=== PATIENT | male | born 1980 | race Caucasian/White ===

== ENCOUNTER 2017-10-15 08:01 | Inpatient (IN) | payer OTHER ==
[2017-10-15] MEDS ORDERED: Morphine 4 mg/ml ISec IVP STA (08:13)
[2017-10-15] MEDS ORDERED: Sodium Chloride 0.9% 1,000 ML IV STA (08:13)
--- NOTE | 2017-10-15 08:13 | ED PDOC ---
Arrival/HPI - General Chief Complaint: Abdominal Pain Time Seen by Provider: 10/15/17 08:12 Historian: Patient - History of Present Illness Narrative History of Present Illness (Text): 10/15/17 08:14 A 37 year old male, whose past medical history includes hernia repair and anorexia, presents to the emergency department complaining of periumbilical pain for 1 week. Patient reports having experienced similar pain in the past, however pain is taking longer to resolve than before. Patient denies any other complaints at this time. No PMD Time/Duration: 1 week Past Medical History - Provider Review Nursing Documentation Reviewed: Yes - Infectious Disease Hx of Infectious Diseases: None - Psychiatric Hx Substance Use: No - Surgical History Other/Comment: Hernia repair. Family/Social History - Physician Review Nursing Documentation Reviewed: Yes Family/Social History: No Known Family HX Smoking Status: Never Smoked Hx Alcohol Use: No Hx Substance Use: No Allergies/Home Meds Allergies/Adverse Reactions: Allergies No Known Allergies Allergy (Verified 10/15/17 08:12) Home Medications: Home Meds Medication Instructions Recorded Confirmed No Known Home Med 10/15/17 10/15/17 Review of Systems - Physician Review All systems were reviewed & negative as marked: Yes - Review of Systems Constitutional: absent: Fevers, Night Sweats Respiratory: absent: SOB, Cough Cardiovascular: absent: Chest Pain Gastrointestinal: Abdominal Pain (periumbilical). absent: Diarrhea, Nausea, Vomiting Physical Exam Vital Signs Temp Pulse Resp BP Pulse Ox 10/15/17 09:20 74 17 133/79 99 10/15/17 08:44 98.2 F 73 18 144/79 95 Mental Status: Positive for: Alert and Oriented X 3 - Systems Exam Head: Present: Atraumatic, Normocephalic Pupils: Present: PERRL Extroacular Muscles: Present: EOMI Conjunctiva: Present: Normal Mouth: Present: Moist Mucous Membranes Neck: Present: Normal Range of Motion Respiratory/Chest: Present: Clear to Auscultation, Good Air Exchange. No: Respiratory Distress, Accessory Muscle Use Cardiovascular: Present: Regular Rate and Rhythm, Normal S1, S2. No: Murmurs Abdomen: No: Tenderness, Distention, Peritoneal Signs Back: Present: Normal Inspection Upper Extremity: Present: Normal Inspection. No: Cyanosis, Edema Lower Extremity: Present: Normal Inspection. No: Edema Neurological: Present: GCS=15, CN II-XII Intact, Speech Normal Skin: Present: Warm, Dry, Normal Color. No: Rashes Psychiatric: Present: Alert, Oriented x 3, Normal Insight, Normal Concentration Medical Decision Making ED Course and Treatment: 10/15/17 08:17 Impression: 37 year old male with periumbilical pain. No acute findings on physical exam. Plan: -- Abd/Pelvis CT -- Labs -- Venous Blood Gas -- Morphine -- Zofran -- IV Fluids -- Urinalysis -- Reassess and disposition Progress Notes: 10/15/2017 10:56 Abd/Pelvis CT IMPRESSION: Extensive pericolonic infiltration obi the descending colon in association with diverticulosis consistent with acute diverticulitis. No evidence of pneumoperitoneum or abscess. Dictator: Guille Ventura MD - Lab Interpretations Lab Results: 10/15/17 08:20 10/15/17 08:20 Lab Results 10/15/17 08:20: Sodium 142, Chloride 102, Potassium 4.1, Carbon Dioxide 28, Anion Gap 17, BUN 11, Creatinine 1.0, Est GFR ( Amer) > 60, Est GFR (Non- Af Amer) > 60, Random Glucose 101, Calcium 9.3, Total Bilirubin 1.0, AST 23, ALT 25, Alkaline Phosphatase 93, Total Protein 7.9, Albumin 4.2, Globulin 3.7, Albumin/Globulin Ratio 1.1, Lipase 43 10/15/17 08:20: pO2 46, VBG pH 7.38, VBG pCO2 50.0, VBG HCO3 29.6 H, VBG Total CO2 31.1 H, VBG O2 Sat (Calc) 86.2 H, VBG Base Excess 3.4 H, VBG Potassium 4.3, Sodium 136.0, Chloride 102.0, Glucose 103, Lactate 0.8, FiO2 21.0, Venous Blood Potassium 4.3 10/15/17 08:20: Urine Color Yellow, Urine Appearance Clear, Urine pH 6.0, Ur Specific [place] 1.025, Urine Protein Negative, Urine Glucose (UA) Negative, Urine Ketones Trace H, Urine Blood Trace-intact H, Urine Nitrate Negative, Urine Bilirubin Negative, Urine Urobilinogen 0.2, Ur Leukocyte Esterase Negative , Urine RBC 2 - 5, Urine WBC 0 - 2, Ur Epithelial Cells None, Urine Bacteria Mod 10/15/17 08:20: PT 15.2 H, INR 1.31 H 10/15/17 08:20: WBC 11.4 H, RBC 4.76, Hgb 14.7, Hct 41.5 L, MCV 87.2, MCH 30.9, MCHC 35.4, RDW 11.8, Plt Count 295, MPV 11.1 H, Gran % 76.5 H, Lymph % (Auto) 14.5 L, [place] % (Auto) 8.1 H, Eos % (Auto) 0.8 L, Baso % (Auto) 0.1, Gran # 8.73 H, Lymph # (Auto) 1.7, [place] # (Auto) 0.9 H, Eos # (Auto) 0.1, Baso # (Auto) 0.01 I have reviewed the lab results: Yes - RAD Interpretation Radiology Orders: 10/15/17 08:15 ABD PELVIS PO & IV CONTRAST [CT] Stat - Medication Orders Current Medication Orders: Discontinued Medications Sodium Chloride (Sodium Chloride 0.9%) 1,000 mls @ 999 mls/hr IV .Q1H1M STA Stop: 10/15/17 09:13 Last Admin: 10/15/17 08:54 Dose: 999 mls/hr eMAR Start Stop Document 10/15/17 08:54 [facility] (Rec: 10/15/17 08:54 [facility] [id number]) Intravenous Solution Start Date 10/15/17 Start Time 08:54 End Date 10/15/17 End time 09:55 Total Infusion Time 61 Morphine Sulfate (Morphine) 4 mg IVP STAT STA Stop: 10/15/17 08:14 Last Admin: 10/15/17 08:52 Dose: 4 mg MAR Pain Assessment Document 10/15/17 08:52 [facility] (Rec: 10/15/17 08:52 [facility] [id number]) Pain Reassessment Is this a pain reassessment? No Sleep Is patient sleeping during reassessment? No Presence of Pain Presence of Pain Yes Pain Scale Used Pain Scale Used Numeric Location Pain Location Body Site Abdomen Description Intensity of Pain at present 7 IVP Administration Document 10/15/17 08:52 [facility] (Rec: 10/15/17 08:52 [facility] [id number]) Charges for Administration # of IVP Administrations 1 Ondansetron HCl (Zofran Inj) 8 mg IVP STAT STA Stop: 10/15/17 08:14 Last Admin: 10/15/17 08:53 Dose: 8 mg IVP Administration Document 10/15/17 08:53 [facility] (Rec: 10/15/17 08:53 [facility] [id number]) Charges for Administration # of IVP Administrations 1 - Scribe Statement The provider has reviewed the documentation as recorded by the Rehana Luo Provider Scribe Attestation: All medical record entries made by the Dickibberenice were at my direction and personally dictated by me. I have reviewed the chart and agree that the record accurately reflects my personal performance of the history, physical exam, medical decision making, and the department course for this patient. I have also personally directed, reviewed, and agree with the discharge instructions and disposition. Disposition/Present on Arrival - Present on Arrival History of DVT/PE: No History of Uncontrolled Diabetes: No Urinary Catheter: No History of Decub. Ulcer: No History Surgical Site Infection Following: None - Disposition Forms: [facility] ([place])
[2017-10-15] MEDS ORDERED: Iohexol 240 (50 ml) ONE (08:21)
[2017-10-15 08:50] LABS: BASO # 0.01 K/mm3 (0.0-2.0); BASO % 0.1 % (0.0-3.0); EOS # 0.1 (0.0-0.7); EOS % 0.8 % (1.5-5.0); GRAN # 8.73 (1.4-6.5); GRAN % 76.5 % (50.0-68.0); HEMOGLOBIN 14.7 g/dL (14.0-18.0); LYMPH # 1.7 (1.2-3.4); LYMPH % 14.5 % (22.0-35.0); MEAN CELL VOLUME 87.2 fl (80.0-105.0); MEAN CORPUSCULAR HEMOGLOBIN 30.9 pg (25.0-35.0); MEAN CORPUSCULAR HGB CONC 35.4 g/dl (31.0-37.0); MEAN PLATELET VOLUME 11.1 fl (7.0-11.0); MONO # 0.9 (0.1-0.6); MONO % 8.1 % (1.0-6.0); RBC 4.76 10^6/uL (3.5-6.1); RED CELL DISTRIBUTION WIDTH 11.8 % (11.5-14.5); WHITE BLOOD COUNT 11.4 10^3/ul (4.5-11.0)
[2017-10-15 08:53] LABS: VENOUS BLOOD GAS BASE EXCESS 3.4 mmol/L (0.0-2.0); VENOUS BLOOD GAS PO2 46 mm/Hg (30-55); VENOUS BLOOD PH 7.38 (7.32-7.43)
[2017-10-15 08:57] LABS: INR 1.31 (0.93-1.08); PROTHROMBIN TIME 15.2 SECONDS (9.4-12.5)
[2017-10-15 08:59] LABS: ALB/GLOB RATIO 1.1 (1.1-1.8); ALBUMIN 4.2 g/dL (3.0-4.8); ALT/SGPT 25 U/L (7-56); AST/SGOT 23 U/L (17-59); BLOOD UREA NITROGEN 11 mg/dL (7-21); CALCIUM 9.3 mg/dL (8.4-10.5); GFR AFRICAN-AMERICAN > 60; GFR NON-AFRICAN AMERICAN > 60; LIPASE 43 U/L (23-300)
[2017-10-15 09:04] LABS: URINE BILIRUBIN NEGATIVE (NEGATIVE); URINE BLOOD TRACE-INTACT (NEGATIVE); URINE GLUCOSE (UA) NEGATIVE (NEGATIVE); URINE LEUKOCYTE ESTERASE NEGATIVE Leu/uL (NEGATIVE); URINE PROTEIN NEGATIVE mg/dL (<30 mg/dL); URINE UROBILINOGEN 0.2 E.U./dL (<1 E.U./dL)
[2017-10-15 09:12] LABS: URINE APPEARANCE CLEAR (CLEAR); URINE COLOR YELLOW (YELLOW)
[2017-10-15 09:52] LABS: URINE WBC 0 - 2 /hpf (0-6)
[2017-10-15 09:53] LABS: URINE BACTERIA MOD (NEG)
--- NOTE | 2017-10-15 10:58 | CT ---
PROCEDURE: CT Abdomen and Pelvis with contrast HISTORY: Periumbilical Pain, Constipation, ? Obstruction COMPARISON: None. TECHNIQUE: Contrast dose: 150 cc of Omnipaque 350 Radiation dose: Total exam DLP = 617 mGy-cm. This CT exam was performed using one or more of the following dose reduction techniques: Automated exposure control, adjustment of the mA and/or kV according to patient size, and/or use of iterative reconstruction technique. FINDINGS: LOWER THORAX: Unremarkable. LIVER: Unremarkable. No gross lesion or ductal dilatation. GALLBLADDER AND BILE DUCTS: Unremarkable. PANCREAS: Unremarkable. No gross lesion or ductal dilatation. SPLEEN: Unremarkable. ADRENALS: Unremarkable. No mass. KIDNEYS AND URETERS: Unremarkable. No hydronephrosis. No solid mass. VASCULATURE: Unremarkable. No aortic aneurysm. BOWEL: Extensive pericolonic fat infiltration along the descending colon in association with diverticulosis consistent with acute diverticulitis. No evidence of pneumoperitoneum or abscess. APPENDIX: Normal appendix. PERITONEUM: Unremarkable. No free fluid. No free air. LYMPH NODES: Unremarkable. No enlarged lymph nodes. BLADDER: Unremarkable. REPRODUCTIVE: Unremarkable. BONES: No acute fracture. OTHER FINDINGS: None. IMPRESSION: Extensive pericolonic fat infiltration along the descending colon in association with diverticulosis consistent with acute diverticulitis. No evidence of pneumoperitoneum or abscess.
[2017-10-15] MEDS ORDERED: metroNIDAZOLE IV 500 mg/100 ml 500 MG/100 ML BAG IVPB STA (11:37)
[2017-10-15] MEDS ORDERED: levoFLOXacin 750 mg in D5W 750 MG/150 ML BAG IVPB STA (11:37)
[2017-10-15] MEDS ORDERED: Morphine 2 mg/ml ISec IVP PRN (13:07)
--- NOTE | 2017-10-15 13:17 | CP.PCM.HP ---
<Wanda Herring - Last Filed: 10/15/17 14:22> History of Present Illness - History of Present Illness History of Present Illness: CC: Abdominal pain. Patient is a 37 y/o with pmhx of hernia s/p repair presenting with periumbilical pain for almost a week. The pain felt dull, was at times sharp, 10 /10 at times, non radiating to the back. Was taking claritrin and ibuprofen on/ off with no significant improvement. Patient states he had similar pain in the past however it usually resolve by itself. Denies dysurea. Patient states he was eating popcorn when the pain started. Denies any history of egd or colonoscopy. No fever or chills. No recent weight loss. Denies nausea, vomiting, or diarrhea. No bloody bowel movement. Denies any new diet, denies steroid use. PMHx: as stated above PSHx: Hernia repair 6-7 years ago. FMHx: denies Social: denies tobacco, admits to occasional alcohol, states he uses cbd oil as anti-inflammatory. Sexually active with . 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 Home meds: none Allergy: NKDA Present on Admission - Present on Admission Any Indicators Present on Admission: No History of DVT/PE: No History of Uncontrolled Diabetes: No Urinary Catheter: No Decubitus Ulcer Present: No Review of Systems - Constitutional Constitutional: absent: As Per HPI, Anorexia, Chills, Daytime Sleepiness, Excessive Sweating, Fatigue, Fever, Frequent Falls, Headache, Increased Appetite , Lethargy, Malaise, Night Sweats, Snoring, Sleep Apnea, Weight Gain, Weight Loss, Weakness, Other - EENT Eyes: absent: Change in Vision Ears: absent: Disequilibrium, Dizziness Nose/Mouth/Throat: absent: Dry Mouth, Dysphagia - Cardiovascular Cardiovascular: absent: Chest Pain, Claudication, Dyspnea, Dyspnea on Exertion, Edema, Leg Edema, Leg Ulcers - Respiratory Respiratory: absent: Cough, Dyspnea, Wheezing - Gastrointestinal Gastrointestinal: Abdominal Pain. absent: Belching, Bloating, Change in Bowel Habits, Change in Stool Character, Coffee Ground Emesis, Constipation, Cramping , Diarrhea, Dysphagia, Early Satiety, Excessive Flatus, Fecal Incontinence, Heartburn, Hematochezia, Loose Stools, Melena, Nausea - Genitourinary Genitourinary: absent: Dysuria, Nocturia, Urinary Urgency - Musculoskeletal Musculoskeletal: absent: Back Pain, Muscle Weakness - Integumentary Integumentary: absent: Dry Skin - Neurological Neurological: absent: Dizziness, Headaches - Psychiatric Psychiatric: absent: Confusion, Depression - Endocrine Endocrine: absent: Fatigue, Palpitations - Hematologic/Lymphatic Hematologic: absent: Easy Bleeding, Easy Bruising Past Patient History - Infectious Disease Hx of Infectious Diseases: None - Tetanus Immunizations Tetanus Immunization: Unknown - Past Medical History & Family History Past Medical History?: Yes - Past Social History Smoking Status: Never Smoked Alcohol: Occasional Drugs: Cannabis Home Situation {Lives}: With Family - PSYCHIATRIC Hx Substance Use: No - SURGICAL HISTORY Other/Comment: Hernia repair. Meds Allergies/Adverse Reactions: Allergies Allergy/AdvReac Type Severity Reaction Status Date / Time No Known Allergies Allergy Verified 10/15/17 18:27 Physical Exam - Constitutional Appears: No Acute Distress - Head Exam Head Exam: ATRAUMATIC, NORMAL INSPECTION, NORMOCEPHALIC - Eye Exam Eye Exam: EOMI, Normal appearance, PERRL. absent: Scleral icterus - ENT Exam ENT Exam: Mucous Membranes Moist - Neck Exam Neck exam: Positive for: Normal Inspection - Respiratory Exam Respiratory Exam: Clear to Auscultation Bilateral, NORMAL BREATHING PATTERN. absent: Rales, Rhonchi, Wheezes, Respiratory Distress, Stridor - Cardiovascular Exam Cardiovascular Exam: REGULAR RHYTHM, RRR, +S1, +S2. absent: Bradycardia, Tachycardia, Gallop, JVD, Rubs, Systolic Murmur - GI/Abdominal Exam GI & Abdominal Exam: Normal Bowel Sounds, Soft, Tenderness (left lower quadrant. ). absent: Distended, Firm, Guarding, Rebound, Rigid - Extremities Exam Extremities exam: Positive for: normal inspection. Negative for: pedal edema, tenderness - Back Exam Back exam: NORMAL INSPECTION - Neurological Exam Neurological exam: Alert, Oriented x3 - Psychiatric Exam Psychiatric exam: Normal Affect, Normal Mood - Skin Skin Exam: Dry, Intact, Normal Color, Warm Results - Vital Signs Recent Vital Signs: Last Vital Signs Temp 98.2 F 10/15/17 08:44 Pulse 72 10/15/17 11:41 Resp 18 10/15/17 11:41 BP 130/80 10/15/17 11:41 Pulse Ox 97 10/15/17 11:41 - Labs Result Diagrams: 10/15/17 08:20 10/15/17 08:20 Assessment & Plan - Assessment and Plan (Free Text) Assessment: Patient is a 37 y/o with pmhx of hernia s/p repair presenting with periumbilical pain for almost a week. Plan: 2) Diverticulitis of the descending colon - NPO - on cefepime and flagyl - ua negative for uti, trace ketone and blood. - IVF- NS@100 cc/hr - Gi consult - Zofran prn for nausea, - Morphine prn for pain - Tylenol prn for fever. 2) Lymphopenia - r/o HIV - HIV test ordered - Hep panel ordered - Drug screen 3) DVT and GI prophylaxis: VTE device, and protonix. Patient seen, examined and case discussed with Dr Garcia. - Date & Time Date: 10/15/17 Time: 14:20 <Anny Garcia U - Last Filed: 10/16/17 10:30> Results - Vital Signs Recent Vital Signs: Last Vital Signs Temp 98 F 10/16/17 06:00 Pulse 76 10/16/17 06:00 Resp 18 10/16/17 06:00 BP 99/60 L 10/16/17 06:00 Pulse Ox 97 10/16/17 06:00 - Labs Result Diagrams: 10/16/17 06:15 10/16/17 06:15 Labs: Laboratory Results - last 24 hr 10/15/17 10/15/17 10/16/17 13:10 14:15 06:15 WBC 9.8 RBC 4.28 Hgb 13.0 L Hct 37.6 L MCV 87.9 MCH 30.4 MCHC 34.6 RDW 11.9 Plt Count 265 MPV 10.5 Gran % 70.4 H Lymph % (Auto) 20.6 L [place] % (Auto) 7.3 H Eos % (Auto) 1.5 Baso % (Auto) 0.2 Gran # 6.88 H Lymph # (Auto) 2.0 [place] # (Auto) 0.7 H Eos # (Auto) 0.2 Baso # (Auto) 0.02 APTT 31.1 Sodium Potassium Chloride Carbon Dioxide Anion Gap BUN Creatinine Est GFR ( Amer) Est GFR (Non-Af Amer) Random Glucose Calcium Magnesium Total Bilirubin Direct Bilirubin AST ALT Alkaline Phosphatase Total Protein Albumin Globulin Albumin/Globulin Ratio Urine Opiates Screen Urine Methadone Screen Ur Barbiturates Screen Ur Phencyclidine Scrn Ur Amphetamines Screen U Benzodiazepines Scrn U Oth Cocaine Metabols U Cannabinoids Screen Hepatitis A IgM Ab Negative Hep Bs Antigen Negative Hep B Core IgM Ab Negative Hepatitis C Antibody Negative 10/16/17 10/16/17 06:15 06:54 WBC RBC Hgb Hct MCV MCH MCHC RDW Plt Count MPV Gran % Lymph % (Auto) [place] % (Auto) Eos % (Auto) Baso % (Auto) Gran # Lymph # (Auto) [place] # (Auto) Eos # (Auto) Baso # (Auto) APTT Sodium 147 Potassium 5.0 Chloride 104 Carbon Dioxide 30 Anion Gap 17 BUN 12 Creatinine 1.0 Est GFR ( Amer) > 60 Est GFR (Non-Af Amer) > 60 Random Glucose 88 Calcium 9.1 Magnesium 2.0 Total Bilirubin 1.0 Direct Bilirubin 0.4 AST 15 L D ALT 25 Alkaline Phosphatase 64 Total Protein 6.7 Albumin 3.5 Globulin 3.2 Albumin/Globulin Ratio 1.1 Urine Opiates Screen Positive H Urine Methadone Screen Negative Ur Barbiturates Screen Negative Ur Phencyclidine Scrn Negative Ur Amphetamines Screen Negative U Benzodiazepines Scrn Negative U Oth Cocaine Metabols Negative U Cannabinoids Screen Negative Hepatitis A IgM Ab Hep Bs Antigen Hep B Core IgM Ab Hepatitis C Antibody Assessment & Plan - Assessment and Plan (Free Text) Plan: Patient is seen and examined in room 565-2 Patient's diagnostic data imaging studies all reviewed and discussed and explained to the patient Assessment and plan: Left lower quadrant abdominal pain 1 week History of popcorn eating Acute descending colon diverticulitis and diverticulosis with pericolonic fat infiltration History of medical hernia surgery and adenoidectomy Leukocytosis Granulocytosis KetonurIa Bacteriuria Microscopic hematuria History of CBD OIL use. Occasional alcohol use. Admit to the hospital IV fluid hydration Broad spectrum IV antibiotics Gastroenterology evaluation nothing by mouth versus liquid diet DICTATED AND ELECTRONICALLY SIGNED NOT READ ANNY GARCIA MD
[2017-10-15 13:27] LABS: HDL CHOLESTEROL 39 mg/dL (29-60)
[2017-10-15 13:38] LABS: LDL CHOLESTEROL 79 mg/dL (0-129)
[2017-10-15] MEDS: metroNIDAZOLE IV 500 mg/100 ml 500 MG/100 ML BAG IVPB SCH ×2 (13:58→23:25)
[2017-10-15] MEDS: Sodium Chloride 0.9% 1,000 ML IV SCH (14:06)
[2017-10-15] MEDS: Cefepime 1gm in NS 100ml 1 GM/100 ML BAG IVPB SCH ×2 (15:28→22:17)
[2017-10-15 16:36] LABS: HEPATITIS B SURFACE AG Negative (NEGATIVE)
[2017-10-15 16:41] LABS: HEPATITIS A IGM NEGATIVE (NEGATIVE); HEPATITIS B CORE AB NEGATIVE (NEGATIVE)
[2017-10-15 16:53] LABS: HEPATITIS C ANTIBODY NEGATIVE (NEGATIVE)
--- NOTE | 2017-10-15 19:32 | CON ---
DATE: 10/15/2017 GASTROENTEROLOGY CONSULTATION REQUESTING PHYSICIAN: Wojciech Garcia MD. REASON FOR CONSULTATION: I have been asked to see this 37-year-old male who comes to the hospital with worsening abdominal pain. Patient states that the pain started approximately 1 week ago in the left mid abdomen. Over the next several days, the pain became localized to the periumbilical area with worsening severity. He denies any fevers, but does admit to some chills. He denies any nausea, vomiting, dysuria, or pneumaturia. He denies any previous episode of diverticulitis. CT scan of the abdomen and pelvis performed in the hospital shows moderate pericolonic stranding and inflammation without any abscess or fluid collection. PAST MEDICAL HISTORY: Unremarkable. PAST SURGICAL HISTORY: Notable for a hernia repair about 6 years ago. FAMILY HISTORY: Noncontributory. SOCIAL HISTORY: He denies cigarette smoking and consumes alcohol on a social basis. REVIEW OF SYSTEMS: Fourteen-point review of systems is notable for periumbilical abdominal pain, otherwise negative. PHYSICAL EXAMINATION: GENERAL: A well-developed male, lying in bed in no acute distress. VITAL SIGNS: Reveal temperature of 100.3, blood pressure of 115/68, heart rate of 71. HEENT: Reveals sclerae to be white. Conjunctivae pink. NECK: Supple. CHEST: Lungs are clear. HEART: Reveals regular rate and rhythm. ABDOMEN: Soft, mild left and mid abdominal tenderness. No rebound, no guarding. EXTREMITIES: Show no edema. LABORATORY DATA: Reveals white blood cell count 11.4, hemoglobin 14.7. Chemistries reveal normal electrolytes. AST, ALT, alk phos all normal. IMPRESSION: Diverticulitis involving the descending colon. RECOMMENDATIONS: 1. Continue IV cefepime 1 g every 8 hours. 2. Continue metronidazole 500 mg IV every 8 hours. 3. We will start the patient on clear liquid diet. 4. Continue close observation for development of peritoneal signs. Tyree Gibson MD
[2017-10-15 21:52] VITALS: BMI 29.2
[2017-10-15] MEDS ORDERED: Pneumococcal 23-Valent Vaccine IM ONE (21:52)
[2017-10-16] MEDS: Sodium Chloride 0.9% 1,000 ML IV SCH ×3 (02:37→21:36)
[2017-10-16] MEDS: Cefepime 1gm in NS 100ml 1 GM/100 ML BAG IVPB SCH ×3 (05:34→21:34)
[2017-10-16] MEDS: metroNIDAZOLE IV 500 mg/100 ml 500 MG/100 ML BAG IVPB SCH ×3 (06:19→21:33)
[2017-10-16 06:38] LABS: BASO # 0.02 K/mm3 (0.0-2.0); BASO % 0.2 % (0.0-3.0); EOS # 0.2 (0.0-0.7); EOS % 1.5 % (1.5-5.0); GRAN # 6.88 (1.4-6.5); GRAN % 70.4 % (50.0-68.0); LYMPH % 20.6 % (22.0-35.0); MEAN CELL VOLUME 87.9 fl (80.0-105.0); MEAN CORPUSCULAR HEMOGLOBIN 30.4 pg (25.0-35.0); MEAN CORPUSCULAR HGB CONC 34.6 g/dl (31.0-37.0); MEAN PLATELET VOLUME 10.5 fl (7.0-11.0); MONO # 0.7 (0.1-0.6); MONO % 7.3 % (1.0-6.0); RBC 4.28 10^6/uL (3.5-6.1); RED CELL DISTRIBUTION WIDTH 11.9 % (11.5-14.5); WHITE BLOOD COUNT 9.8 10^3/ul (4.5-11.0)
--- NOTE | 2017-10-16 06:51 | CP.PCM.PN ---
Subjective - Date & Time of Evaluation Date of Evaluation: 10/16/17 Time of Evaluation: 06:00 - Subjective Subjective: Patient seen and evaluated bedside. Patient had fever overnight. States abdominal pain has decreased, tolerating liquid diet. Patient denies chest pain , shortness of breath, nausea, vomiting, or any other complaints at this time. Objective - Vital Signs/Intake and Output Vital Signs (last 24 hours): Temp Pulse Resp BP Pulse Ox 99.9 F H 74 18 118/60 98 10/15/17 22:47 10/15/17 22:47 10/15/17 22:47 10/15/17 22:47 10/15/17 22:47 Intake and Output: 10/15/17 10/16/17 18:59 06:59 Intake Total 480 Balance 480 - Medications Medications: Current Medications Acetaminophen (Tylenol 325mg Tab) 650 mg PO Q6 PRN PRN Reason: TEMP>=99.5F Last Admin: 10/15/17 15:28 Dose: 650 mg Acetaminophen (Tylenol 650 Mg Supp) 650 mg RC Q6H PRN PRN Reason: TEMP>=99.5F Metronidazole (Flagyl) 500 mg in 100 mls @ 100 mls/hr IVPB Q8 MARIO PRN Reason: Protocol Last Admin: 10/16/17 06:19 Dose: 100 mls/hr Cefepime HCl (Maxipime 1gm) 1 gm in 100 mls @ 100 mls/hr IVPB Q8 MARIO PRN Reason: Protocol Last Admin: 10/16/17 05:34 Dose: 100 mls/hr Sodium Chloride (Sodium Chloride 0.9%) 1,000 mls @ 100 mls/hr IV .Q10H [facility] Last Admin: 10/16/17 02:37 Dose: Not Given Morphine Sulfate (Morphine) 2 mg IVP Q6H PRN PRN Reason: Pain, moderate (4-7) Ondansetron HCl (Zofran Inj) 4 mg IVP Q4H PRN PRN Reason: Nausea/Vomiting Pantoprazole Sodium (Protonix Inj) 40 mg IVP DAILY [facility] - Labs Labs: 10/16/17 06:15 PT 15.2 SECONDS (9.4-12.5) H 10/15/17 08:20 INR 1.31 (0.93-1.08) H 10/15/17 08:20 APTT 31.1 Seconds (25.1-36.5) 10/15/17 14:15 - Constitutional Appears: Non-toxic, No Acute Distress - Head Exam Head Exam: NORMAL INSPECTION, NORMOCEPHALIC - Eye Exam Eye Exam: EOMI, Normal appearance - ENT Exam ENT Exam: Mucous Membranes Moist - Respiratory Exam Respiratory Exam: Clear to Ausculation Bilateral, NORMAL BREATHING PATTERN - Cardiovascular Exam Cardiovascular Exam: REGULAR RHYTHM, +S1, +S2 - GI/Abdominal Exam GI & Abdominal Exam: Soft. absent: Tenderness - Neurological Exam Neurological Exam: Alert, Awake, Oriented x3 Assessment and Plan - Assessment and Plan (Free Text) Assessment: Patient is a 37 y/o with past medical history of hernia s/p repair who presented with periumbilical pain for the past week. Plan: Diverticulitis of the descending colon - clear liquid diet, will advance to full liquids for lunch - continue cefepime and flagyl - continue IV fluids - GIconsulted, Gibson, follow recs - Zofran prn for nausea - Morphine prn for pain - Tylenol prn for fever Lymphopenia - rule out HIV - HIV test pending - Hepatitis panel negative - Drug screen positive for opiates Fever -t max 100.4, currenlty afebrile -blood and urine cultures pending DVT and GI prophylaxis: VTE device, and protonix.
[2017-10-16 06:52] LABS: ALB/GLOB RATIO 1.1 (1.1-1.8); ALBUMIN 3.5 g/dL (3.0-4.8); ALT/SGPT 25 U/L (7-56); AST/SGOT 15 U/L (17-59); BILIRUBIN,DIRECT 0.4 mg/dL (0.0-0.4); BLOOD UREA NITROGEN 12 mg/dL (7-21); CALCIUM 9.1 mg/dL (8.4-10.5); GFR AFRICAN-AMERICAN > 60; GFR NON-AFRICAN AMERICAN > 60
[2017-10-16 07:33] LABS: PHENCYCLIDINE, UR NEGATIVE (NEGATIVE)
[2017-10-16 07:35] LABS: BARBITURATES, UR NEGATIVE (NEGATIVE); BENZODIAZEPINES, UR NEGATIVE (NEGATIVE); OPIATES, UR POSITIVE (NEGATIVE)
--- NOTE | 2017-10-16 14:24 | PN ---
DATE: 10/16/2017 SUBJECTIVE: The patient is seen lying in the bed in room 565, bed 2 with the patient's at bedside. The patient reports less abdominal pain. PHYSICAL EXAMINATION: VITAL SIGNS: T-max is 100.3 down to 99.9; heart rate 74 and 76; blood pressure 118/60, 99/60, 115/68; respirations 18; O2 sat 97% to 98%. HEENT: Head normocephalic, atraumatic. Pinkish conjunctivae. Anicteric sclerae. Dry oral mucosa. NECK: No neck rigidity. CHEST: Symmetrical. LUNGS: Shows no rales, crackles, or wheezing. CARDIOVASCULAR: S1 and S2, regular rhythm. No audible murmur, gallop, or rub. SKIN: Shows multiple skin tattoos. ABDOMEN: Soft. Positive bowel sounds. Very mild left lower quadrant tenderness. No rebound tenderness. No costovertebral angle tenderness. GENITALIA: Male. RECTAL: Deferred. EXTREMITY: Shows no pitting edema, no calf numbness, no Homans sign. NEUROLOGIC: The patient is alert, awake, and oriented x3. Cranial nerves II through XII intact. Gait examination is not tested. MUSCULOSKELETAL: Shows a body mass index of 29.3. VASCULAR: Palpable pulses. DIAGNOSTICS: From 10/16, WBC count is down to 9.8, hemoglobin and hematocrit 13 and 37.6, platelets 265, granulocytes 70.4. Sodium 147, potassium 5, chloride 104, CO2 of 30, anion gap 17. BUN 12, creatinine 1. GFR greater than 60. Glucose 88. Calcium 9.1, magnesium 2. LFTs are normal. Hepatitis A, B, C serologies negative. Microbiology results pending. CAT scan gastroenterology recommendations noted. IMPRESSION: 1. Low-grade fever. 2. Acute descending colon diverticulitis with diverticulosis with pericolonic fat infiltration. 3. Leukocytosis with granulocytosis. 4. Ketonuria. 5. Bacteriuria. 6. Microscopic hematuria. 7. Asymptomatic hypotension. 8. Mild normocytic anemia, dilutional. PLAN: At this time, the patient has been ordered serial labs. HIV test is pending. Blood cultures are ordered. Urine cultures are ordered. Consultation: Gastroenterology. CURRENT MEDICATIONS: Flagyl 500 IV every 8 hours, cefepime 1 g IV every 8 hours, morphine 2 mg IV every 6 hours p.r.n., Protonix 40 mg IV daily, IV fluid 0.9 normal saline at 100 mL an hour which will be increased, Tylenol p.o. and suppository every 6 hours p.r.n., Zofran 4 mg IV every 4 hours p.r.n. Liquid diet ordered. Out of bed to chair ordered. The patient's IV fluid will be increased to 125 mL an hour. The patient will be continued on the above therapeutic intervention as ordered. The patient's further recommendations will be as per Gastroenterology. The patient was updated about his condition, diagnosis, test results, and Gastroenterology recommendation which he acknowledged and understood. All questions concerned answered. Dictated and electronically signed, not read. Wojciech Garcia MD
--- NOTE | 2017-10-16 15:04 | PN ---
DATE: 10/16/2017 SUBJECTIVE: The patient is lying in bed. He states that his abdominal pain is much less. He is tolerating clear liquid diet. He denies any nausea, vomiting, fever, chills, pneumaturia. MEDICATIONS: Include cefepime 1 g IV every 8 hours, Flagyl 500 mg IV every 8 hours, morphine sulfate, Protonix 40 mg daily, Zofran 4 mg IV every 4 hours as needed for nausea, acetaminophen 325 mg p.o. every 6 hours. PHYSICAL EXAMINATION VITAL SIGNS: Reveal T-max of 100.3 yesterday. This morning, blood pressure 99/60, temperature of 98, heart rate of 76. HEENT: Reveals sclerae to be white. Conjunctivae pink. NECK: Supple. CHEST: Lungs are clear. HEART: Reveals regular rate and rhythm. ABDOMEN: Soft. Minimal tenderness in the left mid abdomen. No rebound, no guarding. EXTREMITY: Showed no edema. LABORATORY DATA: Revealed white blood cell count 9.8, hemoglobin 13, platelet count 265,000. Chemistries reveal normal electrolytes, normal LFTs. IMPRESSION: Diverticulitis involving the descending colon. RECOMMENDATIONS: Continue IV cefepime 1 g IV every 8 hours and IV Flagyl 500 mg IV every 8 hours. I will increase the patient's diet to full liquid diet. If the patient continues to improve, consider advancing him to a low residue diet tomorrow. Tyree Gibson MD
[2017-10-17] MEDS: metroNIDAZOLE IV 500 mg/100 ml 500 MG/100 ML BAG IVPB SCH ×3 (05:48→21:36)
[2017-10-17] MEDS: Pantoprazole 40 mg EC Tab PO SCH (05:48)
[2017-10-17] MEDS: Cefepime 1gm in NS 100ml 1 GM/100 ML BAG IVPB SCH ×3 (05:48→21:36)
[2017-10-17] MEDS: Sodium Chloride 0.9% 1,000 ML IV SCH (05:48)
[2017-10-17 06:49] LABS: BASO # 0.02 K/mm3 (0.0-2.0); BASO % 0.3 % (0.0-3.0); EOS # 0.2 (0.0-0.7); EOS % 2.9 % (1.5-5.0); GRAN # 4.2 (1.4-6.5); GRAN % 63.2 % (50.0-68.0); LYMPH # 1.7 (1.2-3.4); LYMPH % 25.8 % (22.0-35.0); MEAN CELL VOLUME 87.5 fl (80.0-105.0); MEAN CORPUSCULAR HEMOGLOBIN 30.1 pg (25.0-35.0); MEAN CORPUSCULAR HGB CONC 34.4 g/dl (31.0-37.0); MEAN PLATELET VOLUME 10.3 fl (7.0-11.0); MONO # 0.5 (0.1-0.6); MONO % 7.8 % (1.0-6.0); RBC 4.32 10^6/uL (3.5-6.1); RED CELL DISTRIBUTION WIDTH 11.8 % (11.5-14.5); WHITE BLOOD COUNT 6.6 10^3/ul (4.5-11.0)
[2017-10-17 07:04] LABS: ALB/GLOB RATIO 1.1 (1.1-1.8); ALBUMIN 3.3 g/dL (3.0-4.8); ALT/SGPT 25 U/L (7-56); AST/SGOT 17 U/L (17-59); BILIRUBIN,DIRECT 0.3 mg/dL (0.0-0.4); BLOOD UREA NITROGEN 11 mg/dL (7-21); CALCIUM 8.9 mg/dL (8.4-10.5); GFR AFRICAN-AMERICAN > 60; GFR NON-AFRICAN AMERICAN > 60
--- NOTE | 2017-10-17 12:38 | PN ---
DATE: 10/17/2017 SUBJECTIVE: The patient is lying in bed comfortable. He had some minimal abdominal pain. He is tolerating full liquid diet. He denies any nausea, vomiting, pneumaturia. He denies any fevers or chills. PHYSICAL EXAMINATION VITAL SIGNS: Reveal temperature of 97.7, blood pressure of 105/65, heart rate of 64. HEENT: Reveals sclerae to be white. Conjunctivae pink. NECK: Supple. CHEST: Lungs are clear. HEART: Reveals regular rate and rhythm. ABDOMEN: Soft, nontender. EXTREMITIES: Show no edema. LABORATORY DATA: Revealed white blood cell count down to 6.6, hemoglobin 13. Chemistries reveal normal electrolytes. IMPRESSION: A 37-year-old male with diverticulitis involving the descending colon. He has clinically responded to IV cefepime and Flagyl. RECOMMENDATIONS: 1. Agree with advancing to low residue diet. 2. If tolerated, the patient can be discharged home on Cipro 500 b.i.d. and Flagyl 500 t.i.d. for 14 days with continued low residue diet. I have asked the patient to follow up with me in the office. Tyree Gibson MD
--- NOTE | 2017-10-17 13:06 | CP.PCM.PN ---
Subjective - Date & Time of Evaluation Date of Evaluation: 10/17/17 Time of Evaluation: 06:00 - Subjective Subjective: Patient seen and examined bedside. No acute issues overnight. Patient feel much better, ambulating, and tolerating full liquid diet well. Patient denies abdominal pain, chest pain, shortness of breath, fever, chills or any other complaints at this time. Objective - Vital Signs/Intake and Output Vital Signs (last 24 hours): Temp Pulse Resp BP Pulse Ox 97.7 F 64 18 105/65 99 10/17/17 06:00 10/17/17 06:00 10/17/17 06:00 10/17/17 06:00 10/17/17 06:00 Intake and Output: 10/17/17 10/17/17 06:59 18:59 Intake Total 600 Balance 600 - Medications Medications: Current Medications Acetaminophen (Tylenol 325mg Tab) 650 mg PO Q6 PRN PRN Reason: TEMP>=99.5F Last Admin: 10/15/17 15:28 Dose: 650 mg Acetaminophen (Tylenol 650 Mg Supp) 650 mg RC Q6H PRN PRN Reason: TEMP>=99.5F Metronidazole (Flagyl) 500 mg in 100 mls @ 100 mls/hr IVPB Q8 MARIO PRN Reason: Protocol Last Admin: 10/17/17 05:48 Dose: 100 mls/hr Cefepime HCl (Maxipime 1gm) 1 gm in 100 mls @ 100 mls/hr IVPB Q8 MARIO PRN Reason: Protocol Last Admin: 10/17/17 05:48 Dose: 100 mls/hr Sodium Chloride (Sodium Chloride 0.9%) 1,000 mls @ 125 mls/hr IV .Q8H [facility] Last Admin: 10/17/17 05:48 Dose: Not Given Morphine Sulfate (Morphine) 2 mg IVP Q6H PRN PRN Reason: Pain, moderate (4-7) Ondansetron HCl (Zofran Inj) 4 mg IVP Q4H PRN PRN Reason: Nausea/Vomiting Pantoprazole Sodium (Protonix Ec Tab) 40 mg PO 0600 [facility] Last Admin: 10/17/17 05:48 Dose: 40 mg - Labs Labs: 10/17/17 06:20 10/17/17 06:20 PT 15.2 SECONDS (9.4-12.5) H 10/15/17 08:20 INR 1.31 (0.93-1.08) H 10/15/17 08:20 APTT 31.1 Seconds (25.1-36.5) 10/15/17 14:15 - Constitutional Appears: Non-toxic, No Acute Distress - Head Exam Head Exam: ATRAUMATIC, NORMAL INSPECTION, NORMOCEPHALIC - Eye Exam Eye Exam: EOMI, Normal appearance - ENT Exam ENT Exam: Mucous Membranes Moist - Respiratory Exam Respiratory Exam: Clear to Ausculation Bilateral, NORMAL BREATHING PATTERN - Cardiovascular Exam Cardiovascular Exam: REGULAR RHYTHM, +S1, +S2 - GI/Abdominal Exam GI & Abdominal Exam: Soft. absent: Tenderness - Neurological Exam Neurological Exam: Alert, Awake, Oriented x3 Assessment and Plan - Assessment and Plan (Free Text) Assessment: Patient is a 37 y/o with past medical history of hernia s/p repair who presented with periumbilical pain for the past week. Plan: Diverticulitis of the descending colon - will advance to low residu diet today - continue cefepime and flagyl - continue IV fluids - GI consulted, Gibson, follow recs - Zofran prn for nausea - Morphine prn for pain - Tylenol prn for fever Lymphopenia - rule out HIV - HIV test nonreactive - Hepatitis panel negative Fever-resolved -currently afebrile -blood and urine cultures pending DVT and GI prophylaxis: VTE device, and protonix.
[2017-10-17 14:54] VITALS: O2SAT 97
--- NOTE | 2017-10-17 20:40 | PN ---
DATE: 10/17/2017 SUBJECTIVE: The patient was seen in room 565, bed 1. The patient is seen lying in the bed. The patient is alert, awake, responsive. The patient tolerated the low-residue diet today which was ordered. The patient tolerated full liquid diet yesterday. The patient was started on low-residue diet, which the patient tolerated breakfast. The patient reports much decreased abdominal pain. The patient denies any rectal bleeding. Denies any nausea, vomiting, diarrhea, constipation. PHYSICAL EXAMINATION: VITAL SIGNS: T-max 98.6; pulse 60-76; blood pressure 103/66, 111/65. HEENT: Head examination normocephalic, atraumatic. HEENT examination shows pink conjunctivae. Anicteric sclerae. Dry oral mucosa. No neck rigidity. CHEST: Symmetrical. LUNGS: Shows no rales, crackles or wheezing. CARDIOVASCULAR: S1, S2. Regular rhythm. ABDOMEN: Soft. No hepatosplenomegaly noted. Significantly reduced left lower quadrant tenderness. No rebound tenderness. No guarding noted. No costovertebral angle tenderness noted. GENITALIA: Male. RECTAL: Deferred. EXTREMITY: Shows no pitting edema, no calf tenderness, no Homans' sign. MUSCULOSKELETAL: As per the stated body mass index. NEUROLOGIC: Cranial nerves II through XII intact. Motor strength is 5/5 in upper and lower extremity. Gait examination is not tested. DIAGNOSTICS: On 10/17/2017, WBC 6.6, hemoglobin and hematocrit 13 and 37.8, platelet 270. Sodium 146, potassium 4.2, chloride 107, CO2 of 28, BUN 11, creatinine 0.9, GFR greater than 60, glucose 90, calcium 8.9, magnesium 2. LFTs are normal. HIV is negative. Hepatitis A, B, C are negative. The patient is awaiting further gastroenterology evaluation. The patient is tolerating the diet. The patient will be observed for at least 24 hours until the patient tolerates low-residue diet and if the patient is able to tolerate the diet, the patient will be considered for discharge. IMPRESSION AND PLAN: 1. Resolving acute descending colon diverticulitis with pericolonic fat infiltration. 2. Abdominal pain secondary to descending colon acute diverticulitis and diverticulosis. 3. Transient leukocytosis. 4. Mild normocytic anemia. 5. Asymptomatic hypotension and hypovolemia. 6. Dehydration. Plan at this time, the patient is to be continued on IV fluid hydration. The patient is to be continued on IV Flagyl. The patient is to be continued on IV cefepime. The patient is to be continued on gastrointestinal and deep venous thrombosis prophylaxis. At this time, we will await further Gastroenterology recommendation regarding continuation of the advanced diet and if the patient tolerates the diet today, the patient will be considered for discharge within 24 hours with continuation and changing over to oral antibiotics for at least 10-14 days.. The patient has been updated and explained about the details of his medical condition and management plan was discussed with the patient at length and all questions concerned answered. Dictated and electronically signed, not read. Wojciech Garcia MD
[2017-10-18] MEDS: metroNIDAZOLE IV 500 mg/100 ml 500 MG/100 ML BAG IVPB SCH (06:16)
[2017-10-18] MEDS: Pantoprazole 40 mg EC Tab PO SCH (06:17)
[2017-10-18] MEDS: Cefepime 1gm in NS 100ml 1 GM/100 ML BAG IVPB SCH (06:17)
[2017-10-18 07:03] LABS: BASO # 0.04 K/mm3 (0.0-2.0); BASO % 0.8 % (0.0-3.0); EOS # 0.2 (0.0-0.7); GRAN # 2.92 (1.4-6.5); GRAN % 54.8 % (50.0-68.0); HEMOGLOBIN 12.9 g/dL (14.0-18.0); LYMPH # 1.8 (1.2-3.4); LYMPH % 34.4 % (22.0-35.0); MEAN CELL VOLUME 86.4 fl (80.0-105.0); MEAN CORPUSCULAR HEMOGLOBIN 30.3 pg (25.0-35.0); MEAN CORPUSCULAR HGB CONC 35.1 g/dl (31.0-37.0); MEAN PLATELET VOLUME 10.6 fl (7.0-11.0); MONO # 0.4 (0.1-0.6); RBC 4.26 10^6/uL (3.5-6.1); RED CELL DISTRIBUTION WIDTH 11.7 % (11.5-14.5); WHITE BLOOD COUNT 5.3 10^3/ul (4.5-11.0)
[2017-10-18 07:51] LABS: ALB/GLOB RATIO 1.1 (1.1-1.8); ALBUMIN 3.3 g/dL (3.0-4.8); ALT/SGPT 29 U/L (7-56); AST/SGOT 29 U/L (17-59); BILIRUBIN,DIRECT 0.2 mg/dL (0.0-0.4); BLOOD UREA NITROGEN 10 mg/dL (7-21); CALCIUM 8.9 mg/dL (8.4-10.5); GFR AFRICAN-AMERICAN > 60; GFR NON-AFRICAN AMERICAN > 60
[2017-10-18 07:53] VITALS: BP 97/58; PULSE 69; RESP 20; TEMP 97.9
--- NOTE | 2017-10-18 10:47 | CP.PCM.DIS ---
Provider - Provider Date of Admission: 10/15/17 12:05 Attending physician: Wojciech Garcia MD Hospital Course - Lab Results Lab Results: Micro Results 10/16/17 11:39 Blood Blood Culture - Preliminary NO GROWTH AFTER 24 HOURS Most Recent Lab Values WBC 5.3 10^3/ul (4.5-11.0) 10/18/17 06:30 RBC 4.26 10^6/uL (3.5-6.1) 10/18/17 06:30 Hgb 12.9 g/dL (14.0-18.0) L 10/18/17 06:30 Hct 36.8 % (42.0-52.0) L 10/18/17 06:30 MCV 86.4 fl (80.0-105.0) 10/18/17 06:30 MCH 30.3 pg (25.0-35.0) 10/18/17 06:30 MCHC 35.1 g/dl (31.0-37.0) 10/18/17 06:30 RDW 11.7 % (11.5-14.5) 10/18/17 06:30 Plt Count 315 10^3/uL (120.0-450.0) 10/18/17 06:30 MPV 10.6 fl (7.0-11.0) 10/18/17 06:30 Gran % 54.8 % (50.0-68.0) 10/18/17 06:30 Lymph % (Auto) 34.4 % (22.0-35.0) 10/18/17 06:30 [place] % (Auto) 7.0 % (1.0-6.0) H 10/18/17 06:30 Eos % (Auto) 3.0 % (1.5-5.0) 10/18/17 06:30 Baso % (Auto) 0.8 % (0.0-3.0) 10/18/17 06:30 Gran # 2.92 (1.4-6.5) 10/18/17 06:30 Lymph # (Auto) 1.8 (1.2-3.4) 10/18/17 06:30 [place] # (Auto) 0.4 (0.1-0.6) 10/18/17 06:30 Eos # (Auto) 0.2 (0.0-0.7) 10/18/17 06:30 Baso # (Auto) 0.04 K/mm3 (0.0-2.0) 10/18/17 06:30 PT 15.2 SECONDS (9.4-12.5) H 10/15/17 08:20 INR 1.31 (0.93-1.08) H 10/15/17 08:20 APTT 31.1 Seconds (25.1-36.5) 10/15/17 14:15 pO2 46 mm/Hg (30-55) 10/15/17 08:20 VBG pH 7.38 (7.32-7.43) 10/15/17 08:20 VBG pCO2 50.0 (40-60) 10/15/17 08:20 VBG HCO3 29.6 mmol/l (21-28) H 10/15/17 08:20 VBG Total CO2 31.1 mmol.L (22-28) H 10/15/17 08:20 VBG O2 Sat (Calc) 86.2 % (40-65) H 10/15/17 08:20 VBG Base Excess 3.4 mmol/L (0.0-2.0) H 10/15/17 08:20 VBG Potassium 4.3 mmol/L (3.6-5.2) 10/15/17 08:20 Sodium 136.0 mmol/L (132-148) 10/15/17 08:20 Chloride 102.0 mmol/L (98-107) 10/15/17 08:20 Glucose 103 mg/dl (75-110) 10/15/17 08:20 Lactate 0.8 mmol/L (0.7-2.1) 10/15/17 08:20 FiO2 21.0 % 10/15/17 08:20 Sodium 146 mmol/L (132-148) 10/18/17 06:30 Potassium 4.0 mmol/L (3.6-5.0) 10/18/17 06:30 Chloride 108 mmol/L (98-107) H 10/18/17 06:30 Carbon Dioxide 27 mmol/L (21-33) 10/18/17 06:30 Anion Gap 15 (10-20) 10/18/17 06:30 BUN 10 mg/dL (7-21) 10/18/17 06:30 Creatinine 0.9 mg/dl (0.8-1.5) 10/18/17 06:30 Est GFR ( Amer) > 60 10/18/17 06:30 Est GFR (Non-Af Amer) > 60 10/18/17 06:30 Random Glucose 90 mg/dL (70-110) 10/18/17 06:30 Calcium 8.9 mg/dL (8.4-10.5) 10/18/17 06:30 Magnesium 1.9 mg/dL (1.7-2.2) 10/18/17 06:30 Total Bilirubin 0.4 mg/dL (0.2-1.3) 10/18/17 06:30 Direct Bilirubin 0.2 mg/dL (0.0-0.4) 10/18/17 06:30 AST 29 U/L (17-59) 10/18/17 06:30 ALT 29 U/L (7-56) 10/18/17 06:30 Alkaline Phosphatase 56 U/L (38-126) 10/18/17 06:30 Total Protein 6.3 g/dL (5.8-8.3) 10/18/17 06:30 Albumin 3.3 g/dL (3.0-4.8) 10/18/17 06:30 Globulin 3.0 gm/dL 10/18/17 06:30 Albumin/Globulin Ratio 1.1 (1.1-1.8) 10/18/17 06:30 Triglycerides 48 mg/dL (35-160) 10/15/17 07:00 Cholesterol 138 mg/dL (130-200) 10/15/17 07:00 LDL Cholesterol Direct 79 mg/dL (0-129) 10/15/17 07:00 HDL Cholesterol 39 mg/dL (29-60) 10/15/17 07:00 Lipase 43 U/L (23-300) 10/15/17 08:20 Venous Blood Potassium 4.3 mmol/L (3.6-5.2) 10/15/17 08:20 Urine Color Yellow (YELLOW) 10/15/17 08:20 Urine Appearance Clear (CLEAR) 10/15/17 08:20 Urine pH 6.0 (4.7-8.0) 10/15/17 08:20 Ur Specific [place] 1.025 (1.005-1.035) 10/15/17 08:20 Urine Protein Negative mg/dL (<30 mg/dL) 10/15/17 08:20 Urine Glucose (UA) Negative mg/dL (NEGATIVE) 10/15/17 08:20 Urine Ketones Trace mg/dL (NEGATIVE) H 10/15/17 08:20 Urine Blood Trace-intact (NEGATIVE) H 10/15/17 08:20 Urine Nitrate Negative (NEGATIVE) 10/15/17 08:20 Urine Bilirubin Negative (NEGATIVE) 10/15/17 08:20 Urine Urobilinogen 0.2 E.U./dL (<1 E.U./dL) 10/15/17 08:20 Ur Leukocyte Esterase Negative Al[place]/uL (NEGATIVE) 10/15/17 08:20 Urine RBC 2 - 5 /hpf (0-2) 10/15/17 08:20 Urine WBC 0 - 2 /hpf (0-6) 10/15/17 08:20 Ur Epithelial Cells None /hpf (0-5) 10/15/17 08:20 Urine Bacteria Mod (NEG) 10/15/17 08:20 Urine Opiates Screen Positive (NEGATIVE) H 10/16/17 06:54 Urine Methadone Screen Negative (NEGATIVE) 10/16/17 06:54 Ur Barbiturates Screen Negative (NEGATIVE) 10/16/17 06:54 Ur Phencyclidine Scrn Negative (NEGATIVE) 10/16/17 06:54 Ur Amphetamines Screen Negative (NEGATIVE) 10/16/17 06:54 U Benzodiazepines Scrn Negative (NEGATIVE) 10/16/17 06:54 U Oth Cocaine Metabols Negative (NEGATIVE) 10/16/17 06:54 U Cannabinoids Screen Negative (NEGATIVE) 10/16/17 06:54 Hepatitis A IgM Ab Negative (NEGATIVE) 10/15/17 13:10 Hep Bs Antigen Negative (NEGATIVE) 10/15/17 13:10 Hep B Core IgM Ab Negative (NEGATIVE) 10/15/17 13:10 Hepatitis C Antibody Negative (NEGATIVE) 10/15/17 13:10 HIV 1&2 Ag/Ab, 4th Gen Nonreactive (Nonreactive) 10/15/17 13:00 Discharge Exam - Head Exam Head Exam: ATRAUMATIC, NORMAL INSPECTION, NORMOCEPHALIC Discharge Plan - Follow Up Plan Condition: GOOD Disposition: HOME/ ROUTINE Referrals: Tyree Gibson MD [Staff Provider] - Wojciech Garcia MD [Staff Provider] -
--- NOTE | 2017-10-18 11:55 | PN ---
DATE: 10/18/2017 SUBJECTIVE: The patient is lying in bed, comfortable. He denies any abdominal pain. He tolerated low-residue diet. He states that he is ready to go home. PHYSICAL EXAMINATION: VITAL SIGNS: Reveal temperature of 97.9, blood pressure 97/58, heart rate is 69. HEENT: Reveal sclerae to be white. Conjunctivae pink. NECK: Supple. CHEST: Reveals lungs to be clear. HEART: Reveals regular rate and rhythm. ABDOMEN: Soft, nontender. No mass. EXTREMITIES: Show no edema. LABORATORY DATA: Reveal white blood cell count 5.3, hemoglobin 12.9. Chemistries reveal normal electrolytes, chloride 108. IMPRESSION: Acute diverticulitis of the descending colon, clinically improving without any further abdominal pain. RECOMMENDATIONS: 1. We will continue low-residue diet for at least the next four weeks. The patient has been given the diet by [facility] Services. 2. Cipro 500 mg p.o. b.i.d. and Flagyl 500 mg t.i.d. for 14 days. 3. I have asked the patient to follow up with me in the office. Tyree Gibson MD
--- NOTE | 2017-10-19 04:16 | DS ---
FINAL PROGRESS NOTE AND DISCHARGE SUMMARY LOCATION: The patient was seen in room 565, bed 2. HISTORY OF PRESENT ILLNESS: The patient is comfortable, tolerating diet. The patient denies any specific complaints. The patient denies any nausea, vomiting, diarrhea. Denies any constipation. Denies hemoptysis, hematemesis, or melena. The patient tolerated the diet. PHYSICAL EXAMINATION: VITAL SIGNS: T-max 98, heart rate 60, 69, blood pressure 103/66, 97/58, respiration 20, O2 sat 97%. GENERAL: The patient was seen lying in the bed. The patient's is at bedside. HEENT: Head examination normocephalic, atraumatic. HEENT examination shows pink conjunctivae. Anicteric sclerae. No oropharyngeal lesion. No neck rigidity. CHEST: Examination symmetrical. LUNGS: Examination shows no rales, crackles or wheezing. CARDIOVASCULAR: Examination S1, S2, regular rhythm. ABDOMEN: Soft. Positive bowel sounds. No hepatosplenomegaly noted. No right and left lower quadrant tenderness noted. No guarding. No rigidity. No rebound tenderness. GENITALIA: Male. RECTAL: Examination is deferred. EXTREMITIES: Shows no pitting edema, no calf tenderness, no Homans' sign. NEUROLOGICALLY: The patient is alert, awake, oriented x3. Cranial nerves II to XII intact. Gait examination is not tested. MUSCULOSKELETAL: Examination shows a body mass index of 30. DIAGNOSTICS: On 10/18; WBC 5.3, hemoglobin and hematocrit of 12.9 and 36.8, platelet 315. Sodium 146, potassium 4, chloride 108, CO2 27, anion gap 15, BUN 10, creatinine 0.9. GFR greater than 60. Glucose 90, calcium 8.9, magnesium 1.9. LFTs are normal. Hepatitis A, B, C serologies and HIV is negative. Urine blood cultures negative. The patient is seen by Gastroenterology. Their recommendations were noted. FINAL IMPRESSION AND DISCHARGE DIAGNOSES: 1. Acute descending colon diverticulitis with extensive pericolonic fat infiltration of the descending colon diverticulitis and diverticulosis. 2. Left lower quadrant abdominal pain secondary to acute diverticulitis. 3. Asymptomatic hypotension. 4. Hypovolemia. 5 Leukocytosis with granulocytosis. 6. Mild normocytic dilutional anemia. 7. Ketonuria and microscopic hematuria and bacteriuria. PLAN: At this time, the patient is to be discharged home as cleared by Gastroenterology. The Gastroenterology recommendation is to discharge the patient home. DISCHARGE DIET: Low-residue diet for 4 weeks. DISCHARGE MEDICATIONS: Ciprofloxacin 500 twice a day and Flagyl 500 three times a day for 14 days. DISCHARGE FOLLOWUP: With Dr. Garcia and Dr. Gibson. The patient was advised to avoid all nonsteroidal anti-inflammatory medication. The patient is advised to follow up with Dr. Garcia and Dr. Gibson within 1 week. The patient was advised to avoid food with seeds. The patient was given a copy of the diet upon discharge. Time spent in the entire discharge process, more than 45 minutes. Dictated and electronically signed, not read. Wojciech Garcia MD
== END 2017-10-18 12:55 | disposition home or self-care (01) | DRG 392 ==
LOC: ED 08:01 → ERH 12:05 → 5RNO 13:31
PROVIDERS: ADMIT Internal Medicine; ATTEND Internal Medicine
DX: K57.32 Diverticulitis of large intestine without perforation or abscess without bleeding (principal); D64.9 Anemia, unspecified; D72.829 Elevated white blood cell count, unspecified; E86.0 Dehydration; E86.1 Hypovolemia; R31.29 Other microscopic hematuria; I95.9 Hypotension, unspecified

== ENCOUNTER 2018-01-02 07:42 | Day surgery (SDC) | payer OTHER ==
[2017-12-25 12:09] VITALS: BMI 29.0
[2018-01-02] MEDS ORDERED: Propofol 10 mg/ml Inj (20 ML) ONE (09:24)
[2018-01-02] MEDS ORDERED: Midazolam 2 MG/2 ML VIAL ONE (09:24)
[2018-01-02] MEDS ORDERED: Sodium Chloride 0.9% 1,000 ML IV SCH (10:30)
[2018-01-02 11:41] VITALS: BP 104/61; RESP 18; TEMP 97.7
[2018-01-02 11:52] VITALS: PULSE 60; O2SAT 99
== END 2018-01-02 12:07 | disposition home or self-care (01) ==
LOC: ENDO 07:42
PROVIDERS: ATTEND Specialist
DX: K62.1 Rectal polyp (principal); K57.30 Diverticulosis of large intestine without perforation or abscess without bleeding; K64.8 Other hemorrhoids; R10.32 Left lower quadrant pain
CPT/HCPCS: 45380; 88305; J2250; J2704; J7030